=== PATIENT | female | born 1995 | race Hispanic/Latino ===

== ENCOUNTER 2020-03-09 20:38 | Emergency (ER) | payer OTHER ==
[~2020-03-09] VITALS: Ht 157.5 cm; Wt 88.5 kg
[2020-03-09] MEDS ORDERED: CEPHALEXIN500 MG PO (22:13)
== END 2020-03-09 23:30 | disposition home or self-care (01) ==
LOC: FSED 21:29
DX: O20.9 Hemorrhage in early pregnancy, unspecified (principal); O23.42 Unspecified infection of urinary tract in pregnancy, second trimester
CPT/HCPCS: 76805; 99283